=== PATIENT | female | born 1945 | race Caucasian/White ===

== ENCOUNTER 2024-08-23 10:45 | Outpatient (RCR) | payer MEDICARE, OTHER, SELFPAY | END 2024-11-09 10:46 | disposition home or self-care (01) | PROVIDERS: Visit Provider Pediatrics | DX: M54.10 Radiculopathy, site unspecified (principal); R53.1 Weakness; R26.9 Unspecified abnormalities of gait and mobility; R26.81 Unsteadiness on feet; Z51.89 Encounter for other specified aftercare | CPT/HCPCS: 97012; 97032; 97035; 97110; 97116; 97140; 97161; 97530 ==